=== PATIENT | male | born 1985 | race Caucasian/White ===

== ENCOUNTER 2017-11-09 20:47 | Inpatient (IN) | payer OTHER ==
[2017-11-09 22:03] LABS: Hematocrit 49 % (42-52); Hemoglobin 16.9 g/dl (14.0-18.0); Mean Corpuscular HGB Conc 34 g/dl (31-36); Mean Corpuscular Hemoglobin 29 pg (27-31); Mean Corpuscular Volume 84 fL (80-94); Mean Platelet Volume 8.6 um3 (7.4-10.4); Platelet Count 309 10^3/ul (150-450); Red Blood Count 5.82 10^6/ul (4.00-5.40); Red Cell Distribution Width 14 % (10.5-15); White Blood Count 19.3 10^3/ul (3.5-10.8)
[2017-11-09] MEDS ORDERED: Metoclopramide IV* 5 MG/ML 2 ML VIAL IV SLOW PU ONE (22:07)
[2017-11-09] MEDS ORDERED: NS 0.9% 1000 ML* 2,000 ML IV ONE (22:07)
[2017-11-09] MEDS ORDERED: Piperacillin/Tazobac ADVAN(*) 3.375 GM in NS 0.9% 100 ML* 100 ML IVPB ONE (22:07)
[2017-11-09] MEDS ORDERED: Morphine INJ* 2 MG/ML 1 ML SYRINGE (TWO MG - NEW SYRINGE VERSION) IV ONE (22:07)
--- NOTE | 2017-11-09 22:08 | ED ---
Abdominal Pain/Male - HPI Summary HPI Summary: This patient is a 31 year old M presenting to [facility] accompanied by his family with a chief complaint of RLQ that began yesterday and has gotten worse since. The patient rates the pain 10/10 in severity and describes it as sharp. Symptoms aggravated by movement. Patient reports nausea, vomiting, and decreased appetite. Patient denies fever. Pt has had exposure to sick persons. - History of Current Complaint Chief Complaint: EDAbdPain Stated Complaint: ABD PAIN Time Seen by Provider: 11/09/17 21:56 Hx Obtained From: Patient Onset/Duration: Lasting Days - 1, Still Present, Worse Since Timing: Constant Severity Initially: Moderate Severity Currently: Severe Pain Intensity: 10 Pain Scale Used: 0-10 Numeric Location: Discrete At: RLQ Character: Sharp Aggravating Factor(s): Movement Associated Signs And Symptoms: Positive: Nausea, Vomiting - Allergies/Home Medications Allergies/Adverse Reactions: Allergies Allergy/AdvReac Type Severity Reaction Status Date / Time No Known Allergies Allergy Verified 11/09/17 20:51 Home Medications: Home Medications NK [No Home Medications Reported] 11/09/17 [History Confirmed 11/09/17] PMH/Surg Hx/FS Hx/Imm Hx Endocrine/Hematology History: Denies: Hx Bone Marrow Disease, Hx Diabetes, Hx Coagulopothy Cardiovascular History: Denies: Hx Cardiomegaly, Hx Congestive Heart Failure Respiratory History: Denies: Hx Bronchopulmonary Dysplasia GI History: Reports: Hx Gastroesophageal Reflux Disease Denies: Hx Gastrointestinal Bleed Psychiatric History: Denies: Hx Panic Disorder, Hx Suicide Attempt Infectious Disease History: No Infectious Disease History: Denies: Traveled Outside the [place] in Last 30 Days - Family History Known Family History: Positive: Hypertension - Social History Lives: With Family Alcohol Use: Occasionally Hx Substance Use: No Substance Use Type: Reports: None Hx Tobacco Use: No Smoking Status (MU): Never Smoked Tobacco Review of Systems Constitutional: Other - decreased appetite Negative: Fever Positive: Abdominal Pain, Vomiting, Nausea All Other Systems Reviewed And Are Negative: Yes Physical Exam - Summary Physical Exam Summary: VITAL SIGNS: Reviewed. GENERAL: Patient is a well-developed and nourished male who is lying comfortable in the stretcher. Patient is not in any acute respiratory distress. HEAD AND FACE: No signs of trauma. No ecchymosis, hematomas or skull depressions. No sinus tenderness. EYES: PERRLA, EOMI x 2, No injected conjunctiva, no nystagmus. EARS: Hearing grossly intact. Ear canals and tympanic membranes are within normal limits. MOUTH: Oropharynx within normal limits. NECK: Supple, trachea is midline, no adenopathy, no JVD, no carotid bruit, no c- spine tenderness, neck with full ROM. CHEST: Symmetric, no tenderness at palpation LUNGS: Clear to auscultation bilaterally. No wheezing or crackles. CVS: Regular rate and rhythm, S1 and S2 present, no murmurs or gallops appreciated. ABDOMEN: Soft. No signs of distention.. Bowel sounds are normal. RLQ is TTP, there are signs of rebound EXTREMITIES: FROM in all major joints, no edema, no cyanosis or clubbing. NEURO: Alert and oriented x 3. No acute neurological deficits. Speech is normal and follows commands. SKIN: Dry and warm Triage Information Reviewed: Yes Vital Signs On Initial Exam: Initial Vitals Temp Pulse Resp BP Pulse Ox 97.5 F 121 20 145/85 96 11/09/17 20:49 11/09/17 20:49 11/09/17 20:49 11/09/17 20:49 11/09/17 20:49 Vital Signs Reviewed: Yes Diagnostics - Vital Signs Vital Signs Temp Pulse Resp BP Pulse Ox 11/09/17 20:49 97.5 F 121 20 145/85 96 - Laboratory Result Diagrams: 11/09/17 21:52 11/09/17 21:52 Lab Statement: Any lab studies that have been ordered have been reviewed, and results considered in the medical decision making process. - CT CT ABD PElvis CT Interpretation Completed By: Radiologist - . Acute appendicitis with perforation. ED physician has reviewed this radiology report. Re-Evaluation - Re-Evaluation First Eval Re-Evaluation Time: 23:09 Change: Worse Comment: Pt is still reporting pain. Abdominal Pain Fem Course/Dx - Course Assessment/Plan: This patient is a 31 year old M presenting to [facility] accompanied by his family with a chief complaint of RLQ that began yesterday and has gotten worse since. The patient rates the pain 10/10 in severity and describes it as sharp. Symptoms aggravated by movement. Patient reports nausea, vomiting, and decreased appetite. Patient denies fever. Pt has had exposure to sick persons. CT ABD Pelvis reveals, per radiologist, 1. Acute appendicitis with perforation. Bloodwork obtained. In the ED course the patient was given pain medication which alleviated the sx. Dx appendicitis. We discussed patient care with Dr. Fatima who will come see the patient and take him to surgery. Patient will be admitted to [facility] [place]. The patient is agreeable with this plan. - Diagnoses Provider Diagnoses: Acute appendicitis - Provider Notifications Discussed Care Of Patient With: William Fatima Time Discussed With Above Provider: 23:53 Instructed by Provider To: Other - He will come see the patient and take him to surgery. Discharge - Sign-Out/Discharge Documenting (check all that apply): Patient Departure - admitted - Discharge Plan Condition: Fair Disposition: ADMITTED TO [facility] Referrals: No Primary Care Phys,NOPCP [Primary Care Provider] - - Attestation Statements Document Initiated by Scribe: Yes Documenting Scribe: Barrett Oswald Provider For Whom Scribe is Documenting (Include Credential): Duane Hillman MD Scribe Attestation: IBarrett , scribed for Duane Hillman MD on 11/10/17 at 0028.
[2017-11-09 22:27] LABS: ABS Basophils 0.1 10^3/ul (0-0.2); ABS Eosinophils 0 10^3/ul (0-0.6); ABS Lymphocytes 2.1 10^3/ul (1.0-4.8); ABS Monocytes 1.8 10^3/ul (0-0.8); ABS Neutrophils 15.2 10^3/ul (1.5-7.7); ABS Nucleated RBC 0.2 10^3/ul; Eosinophil % 0 % (0-6); Nucleated Red Blood Cells % 0.8
[2017-11-09] MEDS ORDERED: Iohexol 300* (CONTRAST) 10 ML SDV IV ONE (22:57)
[2017-11-09] MEDS ORDERED: fentaNYL* 50 MCG/ML 2 ML VIAL (100 MCG VIAL) IV SLOW PU ONE ×2 (23:08→23:56)
[2017-11-09] MEDS ORDERED: fentaNYL* 50 MCG/ML 2 ML VIAL (100 MCG VIAL) ONE (23:10)
--- NOTE | 2017-11-09 23:48 | RAD ---
EXAM: CT Abdomen and Pelvis With Intravenous Contrast CLINICAL HISTORY: 31 years old, male; Pain; Abdominal pain; Localized; Right lower quadrant (rlq); Additional info: Ap; Rlq pain TECHNIQUE: Axial computed tomography images of the abdomen and pelvis with intravenous contrast. All CT scans at this facility use at least one of these dose optimization techniques: automated exposure control; mA and/or kV adjustment per patient size (includes targeted exams where dose is matched to clinical indication); or iterative reconstruction. Coronal and sagittal reformatted images were created and reviewed. CONTRAST: 150 mL of OMNIPAQUE 300 administered intravenously. COMPARISON: No relevant prior studies available. FINDINGS: Lung bases: Unremarkable. No mass. No consolidation. ABDOMEN: Liver: Unremarkable. No mass. Gallbladder and bile ducts: Unremarkable. No calcified stones. No ductal dilation. Pancreas: Unremarkable. No mass. No ductal dilation. Spleen: Unremarkable. No splenomegaly. Adrenals: Unremarkable. No mass. Kidneys and ureters: Unremarkable. No solid mass. No hydronephrosis. Stomach and bowel: Unremarkable. No obstruction. No mucosal thickening. PELVIS: Appendix: Acute appendicitis with dilatation of the appendix, large appendicolith, inflammatory changes in the adjacent mesentery, small focal fluid collection, and pneumoperitoneum. Bladder: Unremarkable. No mass. Reproductive: Unremarkable as visualized. ABDOMEN and PELVIS: Intraperitoneal space: Small amount of pneumoperitoneum is present. Small amount of free fluid is present in the pelvis. Bones/joints: No acute fracture. No dislocation. Soft tissues: Unremarkable. Vasculature: Unremarkable. No abdominal aortic aneurysm. Lymph nodes: Unremarkable. No enlarged lymph nodes. IMPRESSION: 1. Acute appendicitis with perforation.
--- NOTE | 2017-11-10 00:51 | HP ---
H&P (Free Text) History and Physical: CC: abdominal pain HPI: 31 yo M with 36 hr h/o stomach ache progressing to RLQ abdominal pain associated with N/V/anorexia, subjective fever. He initially thought it was a stomach bug as his child has been ill. He slept poorly last night and tried Pepto Bismol today with no relief. He fell asleep at 5 pm but then awoke with sudden worsening of his pain and he came [place] [facility]. He was found to have WBCs=19k and CT scan abd/pelvis shows acute appendicitis with a dilated appendix, large appendicolith, free fluid and pneumoperitoneum. Based on these findings, surgical evaluation was requested. PMH: denies PSH: denies Meds: denies NKDA SH: no tobacco use; EtOH=1 beer/day; denies drug use. FH: F age 56 with RA; M a&w 55; sister 35 with Levar's dz. ROS: No stroke/seizures. No CP/SOB. No cough/wheeze. No easy bruising/ bleeding/blood clots. No thyroid dz/DM. No mm/joint pain. PE: Vital Signs Temp 97.5 F 11/09/17 20:49 Pulse 93 11/10/17 00:16 Resp 18 11/09/17 23:58 BP 151/67 11/10/17 00:16 Pulse Ox 92 11/10/17 00:16 Gen: WD,WN, M in mod distress lying in stretcher. HEENT: NCAT, EOMI, sclera anicteric. Neck: supple, no JOVON Lungs: CTA B, no W/R/R Heart: reg s1s2 no M/R/G Abd: no scars; no BS; diffusely tender to percussion with guarding in RLQ. Ext: warm, no C/C/E Intake & Output 11/09/17 11/09/17 11/10/17 06:59 18:59 06:59 Weight 260 lb Laboratory Results - last 24 hr 11/09/17 11/09/17 11/09/17 21:52 21:52 21:52 WBC 19.3 H RBC 5.82 H Hgb 16.9 Hct 49 MCV 84 MCH 29 MCHC 34 RDW 14 Plt Count 309 MPV 8.6 Neut % (Auto) 79.1 Lymph % (Auto) 11.0 L Victoria % (Auto) 9.6 H Eos % (Auto) 0 Baso % (Auto) 0.3 Absolute Neuts (auto) 15.2 H Absolute Lymphs (auto) 2.1 Absolute Monos (auto) 1.8 H Absolute Eos (auto) 0 Absolute Basos (auto) 0.1 Absolute Nucleated RBC 0.2 Nucleated RBC % 0.8 Sodium 136 Potassium 4.0 Chloride 97 L Carbon Dioxide 27 Anion Gap 12 H BUN 8 Creatinine 1.31 H Est GFR ( Amer) 76.2 Est GFR (Non-Af Amer) 63.0 BUN/Creatinine Ratio 6.1 L Glucose 173 H Lactic Acid 2.3 H* Calcium 10.0 Total Bilirubin 0.90 AST 17 ALT 32 Alkaline Phosphatase 64 C-Reactive Protein 81.63 H Total Protein 8.6 Albumin 5.0 Globulin 3.6 Albumin/Globulin Ratio 1.4 Lipase < 10 L Radiology: CT abd/pel with contrast; images reviewed; findings as above. Impression: 31 yo M with perforated appendicitis. Plan/Recommendation: Findings discussed with patient. Recommendation is for laparoscopic appendectomy. I discussed with him that the findings at the time of surgery will dictate the procedure with the possibility of extension of procedure to include laparotomy. The nature of the procedure, indications, risks, benefits, alternatives, and option of no treatment were discussed. Risks were explained including, not limited to: bleeding, infection, pain, scarring, blood clots, pneumonia, N/V, and risks of GETA. All questions were answered. He stated understanding and agrees to proceed.
[2017-11-10] MEDS ORDERED: HYDROmorphone INJ1* 1 MG/ML SYRINGE IV SLOW PU PRN (01:00)
[2017-11-10] MEDS ORDERED: Zosyn per Pharmacy* NOTE FOLLOW UP SCH (01:00)
[2017-11-10] MEDS ORDERED: diPHENhydraMINE IV* 50 MG/ML 1 ml VIAL (BENADRYL) IV PRN (01:01)
[2017-11-10] MEDS ORDERED: Ketorolac INJ* 30 MG/ML 1 ML VIAL IV PRN (01:02)
[2017-11-10] MEDS ORDERED: Succinylcholine* 20 MG/ML 10 ML VIAL ONE (01:11)
[2017-11-10] MEDS ORDERED: Propofol* 10 MG/ML 20 ML BTL IV PUSH ONE ×2 (01:11→02:50)
[2017-11-10] MEDS ORDERED: Lidocaine 2% PF * 5 ML VIAL ONE (01:11)
[2017-11-10] MEDS ORDERED: Cisatracurium* 2 MG/ML MDV 5 ML ONE (01:11)
[2017-11-10] MEDS ORDERED: Ondansetron INJ* 2 MG/ML VIAL ONE (01:11)
[2017-11-10] MEDS ORDERED: Dexamethasone IV* 4 MG/ML 1 ML (4 MG) ONE (01:11)
[2017-11-10] MEDS ORDERED: Midazolam* 1 MG/ML 5 ML VIAL (5 MG) ONE (01:11)
[2017-11-10] MEDS ORDERED: fentaNYL* 50 MCG/ML 2 ML VIAL (100 MCG VIAL) ONE ×2 (01:11→02:50)
[2017-11-10] MEDS ORDERED: Bupivacaine 0.25% W/EPI* 10 ML SDV ONE ×2 (01:26→03:42)
[2017-11-10] MEDS ORDERED: Bupivacaine 0.25% SDV PF* 10 ML VIAL INJ ONE (01:47)
[2017-11-10] MEDS ORDERED: Famotidine IV* 10 MG/ML 2 ML (20 mg) ONE (02:07)
[2017-11-10] MEDS ORDERED: fentaNYL* 50 MCG/ML 2 ML VIAL (100 MCG VIAL) IV PRN (02:32)
[2017-11-10] MEDS ORDERED: Naloxone* 0.4 MG/ML 1 ML VIAL IV PRN (02:32)
[2017-11-10] MEDS ORDERED: Ondansetron INJ* 2 MG/ML VIAL IV PRN (02:32)
[2017-11-10] MEDS ORDERED: Glycopyrrolate IV* 0.2 MG/ML 1 ML VIAL ONE (03:00)
[2017-11-10] MEDS ORDERED: Neostigmine Methylsulfate* 1 MG/ML 10 ML VIAL (1 mg/ml) ONE (03:00)
[2017-11-10] MEDS: Piperacillin/Tazobac ADVAN(*) 3.375 GM in NS 0.9% 100 ML* 100 ML IVPB SCH ×4 (04:50→23:07)
--- NOTE | 2017-11-10 10:33 | BRIEFOPN ---
Brief Operative Note - Surgery Procedures: PREOP DX: ACUTE APPENDICITIS WITH PERFORATION POSTOP DX: SAME AND FECAL PERITONITIS PROC: LAPAROSCOPIC APPENDECTOMY; PERITONEAL LAVAGE; DRAIN PLACEMENT SURG: MECENAS ASSIST: NONE ANES: GET/TOAL EBL: <50ML IVF: 2.5 L LR SPEC: APPENDIX DRAIN: 7MM SHAUN COMPL: NONE CONDITION: STABLE TO RR
[2017-11-10] MEDS: D5W 1/2 NS KCl 20 Meq 1000 ML* 1,000 ML IV SCH ×2 (10:45→17:10)
[2017-11-10] MEDS ORDERED: Acetaminophen TAB* 325 MG ONE (12:45)
[2017-11-10] MEDS: Acetaminophen TAB* 325 MG PO PRN ×3 (12:46→23:21)
--- NOTE | 2017-11-10 18:15 | PN ---
Progress Note - Progress Note Date of Service: 11/10/17 Note: Surgery Progress: S: POD #1/2. Patient seen earlier this a.m. and now. Doing well. Not much pain. Burping. No flatus. Had fever earlier. O: Vital Signs - 8 hr 11/10/17 11/10/17 11/10/17 10:40 10:42 12:26 Temperature 100.1 F 100.1 F 100.3 F Pulse Rate 97 97 92 Respiratory 16 22 Rate Blood Pressure 157/74 157/74 132/50 (mmHg) O2 Sat by Pulse 94 94 94 Oximetry 11/10/17 11/10/17 11/10/17 12:31 13:43 15:34 Temperature 99.8 F 97.9 F Pulse Rate 94 100 100 Respiratory 16 Rate Blood Pressure 149/71 (mmHg) O2 Sat by Pulse 94 97 Oximetry Intake and Output Last 24 Hours 11/08/17 11/09/17 11/10/17 11/11/17 06:59 06:59 06:59 06:59 Intake Total 2710 1079 Output Total 310 2095 Balance 2400 -1016 Weight 260 lb Intake: IV Fluids 2710 629 ABX - ZOSYN 110 LR 2600 629 Oral 450 Output: SHAUN #1 110 120 Urine 150 1325 Lopez 650 Estimated Blood Loss 50 Gen: NAD; appears comfortable Heart: reg Lungs: clear Abd: quiet; softly distended; SHAUN: serosang w/ some particulate material; soft, no sig tenderness A: s/p laparoscopic appendectomy; ruptured w/ stool peritonitis P: clears ad sue; d/c Lopez; cont Zosyn; discussed with Dr. Fatima earlier
--- NOTE | 2017-11-10 18:29 | OP ---
DATE OF SURGERY: 11/10/17 - ROOM #346 DATE OF : 81 SURGEON: William Fatima MD RESEARCH METHODS INSTRUCTOR: None. ANESTHESIA: General endotracheal. ANESTHESIOLOGIST: Dio Galeano MD PRE-OP DIAGNOSIS: Perforated appendicitis. POST-OP DIAGNOSIS: Perforated appendicitis with fecal peritonitis. OPERATIVE PROCEDURE: Laparoscopic appendectomy, peritoneal lavage, drain placement. ESTIMATED BLOOD LOSS: Less than 50 mL. IV FLUIDS: 2500 mL crystalloid. SPECIMEN: Appendix. DRAINS: A 7-mm Lennox-Jaime. COMPLICATIONS: None. COUNTS: Instrument, needle, sponge counts were correct. DESCRIPTION OF PROCEDURE: The patient was brought to the operating room and placed on the table supine. Sequential compression devices were placed on both lower extremities. General anesthesia was administered. Lopez catheter was placed. He was clipped, prepped and draped in the usual sterile fashion. He received appropriate intravenous antibiotics. Time-out was performed. Local anesthetic was infiltrated periumbilically. A vertical transumbilical incision was created and open technique was used to access the peritoneal cavity after which a 12-mm trocar was placed. Carbon dioxide was insufflated to a pressure of 15 mmHg. Under direct visualization, a 5-mm trocar was placed in the suprapubic midline and also in the left lower quadrant. Inspection of the peritoneum revealed extensive peritonitis of the lower abdomen with brown purulent fluid in the abdomen with fibrinous exudate throughout the abdomen including above the liver. The terminal ileum and cecum were identified and there was noted to be a very dilated appendix with perforation at its mid portion with feculent material emanating from the appendix. The appendix was mobilized bluntly to elevate the mesentery of the appendix and created a window through this. The appendix was then divided from the cecum with the Endo ANDRES stapler with a dhaliwal cartridge using 2 firings. Then, the appendix mesentery was divided with EndoGIA stapler with a dhaliwal cartridge, size 16 mm. Once the appendix was freed, it was place into an retrieval bag and retrieved through the umbilical site. A copious peritoneal lavage was performed with 6 L of warm saline irrigating all 4 quadrants and in particular paying attention to the area above the liver as well as the pelvis. After assuring hemostasis and inspection of the staple lines noted to be intact, a 7-mm Lennox-Jaime drain was placed into the peritoneal cavity withdrawn to the suprapubic site and the drain was placed into the pelvis and along the right paracolic gutter. The drain was sutured to the skin with 3-0 Prolene. The remaining ports removed under direct visualization. Carbon dioxide was released. The umbilical wound was closed with 0 Vicryl in [id number] fashion to approximate the fascia. This was copiously irrigated. The wound was partially closed with joyce and packed with 4x4 gauze. The left lower quadrant skin incision was closed with staple and dressing supplied to all the sites. The patient was extubated uneventfully. He was transferred to the recovery room in a stable condition. [id number]/[facility] #: [id number] NURIA
[2017-11-11] MEDS: D5W 1/2 NS KCl 20 Meq 1000 ML* 1,000 ML IV SCH ×3 (01:44→21:15)
[2017-11-11] MEDS: Piperacillin/Tazobac ADVAN(*) 3.375 GM in NS 0.9% 100 ML* 100 ML IVPB SCH ×2 (05:01→10:34)
[2017-11-11] MEDS: Acetaminophen TAB* 325 MG PO PRN ×2 (05:41→14:13)
[2017-11-11 05:52] LABS: ABS Basophils 0 10^3/ul (0-0.2); ABS Eosinophils 0 10^3/ul (0-0.6); ABS Lymphocytes 1.5 10^3/ul (1.0-4.8); ABS Monocytes 0.9 10^3/ul (0-0.8); ABS Neutrophils 10.9 10^3/ul (1.5-7.7); ABS Nucleated RBC 0 10^3/ul; Eosinophil % 0.4 % (0-6); Hematocrit 43 % (42-52); Hemoglobin 14.7 g/dl (14.0-18.0); Lymphocyte % 11.1 % (25-47); Mean Corpuscular HGB Conc 34 g/dl (31-36); Mean Corpuscular Hemoglobin 29 pg (27-31); Mean Corpuscular Volume 86 fL (80-94); Mean Platelet Volume 8.3 um3 (7.4-10.4); Nucleated Red Blood Cells % 0.1; Platelet Count 203 10^3/ul (150-450); Red Blood Count 5.01 10^6/ul (4.00-5.40); Red Cell Distribution Width 14 % (10.5-15); White Blood Count 13.3 10^3/ul (3.5-10.8)
[2017-11-11 06:08] LABS: EGFR Non-African American 58.8 (>60)
--- NOTE | 2017-11-11 11:19 | PN ---
Progress Note - Progress Note Date of Service: 11/11/17 Note: S: Patient is POD #2 s/p lap appy with perforated appendix. Pt is OOB and walking, tolerating liquids well, and would like to advance diet. He denies nausea and vomiting, has not yet had a bowel movement, but is passing flatus. He has diffuse pressure throughout abdomen he attributes to distension with moderate SOB on walking due to the pressure, some relief with pain medication. O: Temp Pulse Resp BP Pulse Ox 98.8 F 112 18 147/60 91 11/11/17 08:24 11/11/17 08:24 11/11/17 08:24 11/11/17 08:24 11/11/17 08:24 Intake & Output 11/09/17 11/10/17 11/11/17 11/12/17 06:59 06:59 06:59 06:59 Intake Total 2710 3349 925 Output Total 310 3335 10 Balance 2400 14 915 Weight 260 lb Intake: IV Fluids 2710 1859 815 ABX - ZOSYN 110 240 D5W 1/2 NS 20 meq KCL 990 815 LR 2600 629 IVPB 110 ABX - ZOSYN 110 Oral 1490 Output: SHAUN #1 110 135 10 Urine 150 2550 0 Lopez 650 Estimated Blood Loss 50 VSS stable. Max T 101 F, resolved. Gen: Pt is OOB and walking the hallway. He is in NAD. HEENT: Dry oral mucous membranes. Heart: Tachycardia, regular rhythm. No MRG. Lungs: CTA b/l to anterior upper lobes and posterior bases. Abd: SHAUN drain in place, collecting 50 cc cloudy dark serosanguinous fluid. Dressings removed. Incisions are healing well, joyce are intact. No signs of infection. SHAUN Drain is in place with mild drainage from incision, replaced dressing. Present hypoactive BS. Mild tenderness to lower quadrants b/l. Ext: No edema or discoloration. WBC 11/09/17 11/11/17 21:52 05:35 WBC 19.3 10^3/ul H 10^3/ul 13.3 10^3/ul H 10^3/ul (3.5-10.8) (3.5-10.8) WBC trending downward. A: POD #2 s/p lap appy with perforated appendix, improving. P: Advance diet as tolerated. Continue IS use. Increase activity. Continue IV abx and IV fluids.
[2017-11-11] MEDS: ZOSYN 3.375 GM Q8H per EXTENDED INFUSION IVPB SCH ×4 (14:47→22:30)
--- NOTE | 2017-11-11 16:05 | PN ---
Progress Note - Progress Note Date of Service: 11/11/17 Note: Patient seen with PA studentJewel. Agree with assessment and plan.
[2017-11-11] MEDS: Ondansetron INJ* 2 MG/ML VIAL IV PRN (23:19)
[2017-11-12 05:45] LABS: EGFR Non-African American 61.9 (>60)
[2017-11-12] MEDS: ZOSYN 3.375 GM Q8H per EXTENDED INFUSION IVPB SCH ×6 (06:31→23:13)
[2017-11-12] MEDS: D5W 1/2 NS KCl 20 Meq 1000 ML* 1,000 ML IV SCH ×2 (07:45→14:51)
--- NOTE | 2017-11-12 08:57 | PN ---
<Tera Holloway - Last Filed: 11/12/17 09:03> Progress Note - Progress Note Date of Service: 11/12/17 Note: S: Pt is POD #2 s/p lap appy with perforated appendix. The abdominal bloating and pressure are improving but remain. Pain controlled and tolerable with acetaminophen. He notes reflux sx with vomiting small amount of bile last night when laying down for bed. He continues to have reflux sx and is requesting medication for control. He has been passing flatus, stool, and urine without difficulty. He continues to be OOB and walking. He notes improvement with IS use. He denies CP, SOB, and nausea. O: Temp Pulse Resp BP Pulse Ox 97.9 F 101 16 155/94 92 11/12/17 03:58 11/12/17 03:58 11/12/17 03:58 11/12/17 03:58 11/12/17 03:58 T max is 101.2 F. Intake & Output 11/10/17 11/11/17 11/12/17 11/13/17 06:59 06:59 06:59 06:59 Intake Total 2710 3349 2925 Output Total 310 3335 1175 63 Balance 2400 14 1750 -63 Weight 260 lb Intake: IV Fluids 2710 1859 1805 ABX - ZOSYN 110 240 D5W 1/2 NS 20 meq KCL 990 1805 LR 2600 629 IVPB 230 ABX - ZOSYN 230 Oral 1490 890 Output: SHAUN #1 110 135 505 38 Urine 150 2550 670 25 Lopez 650 Estimated Blood Loss 50 Other: Estimated Void Medium Date of Last Bowel 11/12/2017 Movement # Bowel Movements 1 Estimated Stool Amount Small # Voids 1 Gen: Pt is sitting upright in chair and in NAD. HEENT: Moist mucus membranes. Heart: Mild tachycardia. Regular rhythm. No MRG. Lungs: CTA b/l to upper anterior roberts and lower posterior roberts. Abd: Umbilical and LLQ incisions healing well, joyce intact. No signs of infection. Midline suprapubic incision continues to have slight drainage from around SHAUN tube, otherwise dressing is dry and intact. SHAUN Drain collected 25 cc cloudy yellow drainage. BS normoactive 4Q. No tenderness to palpation. Ext: No edema or discoloration. A: POD #2 s/p lap appy with perforated appendix, improving. P: Antacid for reflux sx. Continue IV abx. Continue IS use. Continue activity. Consider transition from clear liquid diet to full liquids. Will have Dr. Fatima and/or CECE Wilkerson F/U with pt to confirm my assessment. <William Fatima - Last Filed: 11/12/17 13:19> Progress Note - Progress Note Note: Pt seen independently by me. Agree with findings as above. In my assessment, I suspect he still has resolving ileus secondary to his peritonitis, even though some bowel function as he has abdominal distension and emesis. I advised him to limit po intake until feeling less distended. Will continue to monitor Cr and continue IVF. Given the severity of the peritonits and as he has low grade fevers, will continue IV Zosyn until afebrile. Can change to po Augmentin at discharge. I discussed that he is at increased risk of abscess and may require additional imaging and procedures if warranted by his course.
[2017-11-12] MEDS ORDERED: Al Hydrox/Mg Hydrox/Simet LIQ* 30 ML UDC PO PRN (10:07)
[2017-11-12] MEDS: Pantoprazole IV* 40 MG IV SCH (10:40)
[2017-11-13] MEDS: D5W 1/2 NS KCl 20 Meq 1000 ML* 1,000 ML IV SCH ×2 (00:53→10:46)
[2017-11-13 06:17] LABS: EGFR Non-African American 71.1 (>60)
[2017-11-13] MEDS: ZOSYN 3.375 GM Q8H per EXTENDED INFUSION IVPB SCH ×6 (06:32→23:06)
[2017-11-13] MEDS ORDERED: oxyCODONE/Acetamin 5/325 MG* TAB PO PRN (09:48)
--- NOTE | 2017-11-13 09:48 | PN ---
Progress Note - Progress Note Date of Service: 11/13/17 SOAP: Subjective: Feels better today-slept a little more Having some loose BM's-feels a little distended and burping Pain controlled Objective: Afeb X 24 hours Temp Pulse Resp BP Pulse Ox 98.4 F 85 18 134/54 94 11/13/17 08:17 11/13/17 08:17 11/13/17 08:17 11/13/17 08:17 11/13/17 08:17 Intake & Output 11/11/17 11/12/17 11/13/17 11/14/17 06:59 06:59 06:59 06:59 Intake Total 3349 2925 5316 Output Total 3335 1175 1785 Balance 14 1750 3531 Intake: IV Fluids 1859 1805 3225 ABX - ZOSYN 240 D5W 1/2 NS 20 meq KCL 990 1805 3225 LR 629 IVPB 230 371 ABX - ZOSYN 230 371 Oral 3109 995 8230 Output: SHAUN #1 135 505 85 Urine 2550 670 1700 Lopez 650 Other: Estimated Void Medium Date of Last Bowel 11/12/2017 11/12/17 Movement # Bowel Movements 1 1 Estimated Stool Amount Small Small Other Amount Description Emesis unmeasurable # Voids 1 PEX: Comfortable Lungs are clear Abd is soft and distended. Incisions are CDI. Bowel sounds are decreased, quiet. Drain in place-thin serous fluid Ext with some mild edema Laboratory Results - last 24 hr 11/13/17 05:41 Sodium 134 L Potassium 3.8 Chloride 100 L Carbon Dioxide 29 Anion Gap 5 BUN 10 Creatinine 1.18 H Est GFR ( Amer) 86.0 Est GFR (Non-Af Amer) 71.1 BUN/Creatinine Ratio 8.5 Glucose 118 H Calcium 8.3 L Assessment: POD# 4 s/p lap appy for perforated appendicitis Ileus Plan: Continue IV abx SHAUN drain Po as tolerated Increase activity Not ready for discharge.
[2017-11-13] MEDS: Pantoprazole IV* 40 MG IV SCH (10:46)
[2017-11-14 06:03] LABS: ABS Basophils 0.1 10^3/ul (0-0.2); ABS Eosinophils 0.2 10^3/ul (0-0.6); ABS Lymphocytes 1.2 10^3/ul (1.0-4.8); ABS Monocytes 1.3 10^3/ul (0-0.8); ABS Neutrophils 7.2 10^3/ul (1.5-7.7); ABS Nucleated RBC 0 10^3/ul; Eosinophil % 2.3 % (0-6); Hematocrit 37 % (42-52); Hemoglobin 12.7 g/dl (14.0-18.0); Lymphocyte % 11.8 % (25-47); Mean Corpuscular HGB Conc 34 g/dl (31-36); Mean Corpuscular Hemoglobin 29 pg (27-31); Mean Corpuscular Volume 85 fL (80-94); Mean Platelet Volume 8.2 um3 (7.4-10.4); Nucleated Red Blood Cells % 0; Platelet Count 240 10^3/ul (150-450); Red Blood Count 4.38 10^6/ul (4.00-5.40); Red Cell Distribution Width 14 % (10.5-15)
[2017-11-14] MEDS: ZOSYN 3.375 GM Q8H per EXTENDED INFUSION IVPB SCH ×6 (07:37→23:02)
[2017-11-14] MEDS: D5W 1/2 NS KCl 20 Meq 1000 ML* 1,000 ML IV SCH (07:37)
--- NOTE | 2017-11-14 09:10 | PN ---
Progress Note - Progress Note Date of Service: 11/14/17 Note: Surgery Mr. Cardoza says he feels pretty good. He has some gas pain in the abd. He is tolerating a diet. He is having loose BMs, and passing flatus with BMs. Vital Signs 11/13/17 11/13/17 11/13/17 11:51 15:27 20:06 Temperature 99.3 F 98.7 F 100.3 F Pulse Rate 85 89 95 Respiratory 16 20 16 Rate Blood Pressure 156/58 151/61 155/57 (mmHg) O2 Sat by Pulse 98 96 95 Oximetry 11/13/17 11/13/17 11/13/17 20:20 21:36 23:14 Temperature 98.7 F 99.0 F Pulse Rate 95 85 Respiratory 18 18 Rate Blood Pressure 149/62 (mmHg) O2 Sat by Pulse 94 94 Oximetry 11/14/17 11/14/17 11/14/17 03:09 03:18 07:33 Temperature 98.5 F Pulse Rate 95 Respiratory 16 16 Rate Blood Pressure 147/70 (mmHg) O2 Sat by Pulse 95 Oximetry Abd: decreased BS, soft, non-tender Incision: clean and dry SHAUN: yellow, cloudy fluid. 245 cc recorded last 24 hours. Intake & Output 11/13/17 11/14/17 11/14/17 22:59 06:59 14:59 Intake Total 600 535 617 Output Total 650 1025 550 Balance -50 -490 67 Laboratory Results - last 24 hr 11/14/17 05:37 WBC 10.0 RBC 4.38 Hgb 12.7 L Hct 37 L MCV 85 MCH 29 MCHC 34 RDW 14 Plt Count 240 MPV 8.2 Neut % (Auto) 71.9 Lymph % (Auto) 11.8 L [place] % (Auto) 13.3 H Eos % (Auto) 2.3 Baso % (Auto) 0.7 Absolute Neuts (auto) 7.2 Absolute Lymphs (auto) 1.2 Absolute Monos (auto) 1.3 H Absolute Eos (auto) 0.2 Absolute Basos (auto) 0.1 Absolute Nucleated RBC 0 Nucleated RBC % 0 A/P: POD#4.5 s/p appendectomy for perforated appendicitis. Making progress, leukocytosis resolved. Still had low grade fever yesterday, will continue IVAbx for now. CLFoster
[2017-11-14] MEDS: Pantoprazole IV* 40 MG IV SCH (11:35)
[2017-11-14] MEDS: Acetaminophen TAB* 325 MG PO PRN (23:08)
[2017-11-15] MEDS: D5W 1/2 NS KCl 20 Meq 1000 ML* 1,000 ML IV SCH ×2 (00:17→17:36)
[2017-11-15 00:51] LABS: Urine Appearance Clear; Urine Blood 2+ (Negative); Urine Color Yellow; Urine Ketones Negative (Negative); Urine Protein 1+(30 mg/dL) (Negative); Urine Red Blood Cell 2+(6-10/hpf) (Absent); Urine Specific Gravity 1.009 (1.010-1.030); Urine Urobilinogen Negative (Negative); Urine White Blood Cell Trace(0-5/hpf) (Absent)
[2017-11-15 05:41] LABS: ABS Basophils 0 10^3/ul (0-0.2); ABS Eosinophils 0.2 10^3/ul (0-0.6); ABS Lymphocytes 0.7 10^3/ul (1.0-4.8); ABS Monocytes 1.2 10^3/ul (0-0.8); ABS Neutrophils 7.3 10^3/ul (1.5-7.7); ABS Nucleated RBC 0 10^3/ul; Eosinophil % 1.8 % (0-6); Hematocrit 37 % (42-52); Hemoglobin 12.7 g/dl (14.0-18.0); Lymphocyte % 7.6 % (25-47); Mean Corpuscular HGB Conc 34 g/dl (31-36); Mean Corpuscular Hemoglobin 29 pg (27-31); Mean Corpuscular Volume 84 fL (80-94); Mean Platelet Volume 7.7 um3 (7.4-10.4); Nucleated Red Blood Cells % 0.1; Platelet Count 253 10^3/ul (150-450); Red Blood Count 4.39 10^6/ul (4.00-5.40); Red Cell Distribution Width 14 % (10.5-15); White Blood Count 9.4 10^3/ul (3.5-10.8)
[2017-11-15] MEDS: ZOSYN 3.375 GM Q8H per EXTENDED INFUSION IVPB SCH ×6 (06:13→22:53)
[2017-11-15] MEDS: Acetaminophen TAB* 325 MG PO PRN ×2 (07:32→20:01)
--- NOTE | 2017-11-15 08:39 | PN ---
Progress Note - Progress Note Date of Service: 11/15/17 SOAP: Subjective: Overall states he feels better but having high fever to 102. No need for pain meds. Eating with appetite. Having BM and flatus. Objective: Vital Signs Temp 99.6 F 11/15/17 05:58 Pulse 85 11/15/17 03:53 Resp 16 11/15/17 03:53 BP 153/57 11/15/17 03:53 Pulse Ox 95 11/15/17 03:53 Gen: appears flushed; NAD abd: obese, incisions c/d/i no erythema; soft and NT; SHAUN serous. Intake & Output 11/14/17 11/15/17 11/15/17 18:59 06:59 18:59 Intake Total 617 3880 Output Total 1335 2268 Balance -718 1612 Intake: IV Fluids 505 1380 ABX - ZOSYN 215 D5W 1/2 NS 20 meq KCL 505 950 LR 215 IVPB 112 ABX - ZOSYN 112 Oral 2500 Output: SHAUN #1 85 18 Urine 1250 2250 Other: Estimated Void Medium Date of Last Bowel 11/14/17 11/14/2017 Movement # Bowel Movements 1 1 Estimated Stool Amount Small Large # Voids 1 Laboratory Results - last 24 hr 11/15/17 11/15/17 00:17 05:13 WBC 9.4 RBC 4.39 Hgb 12.7 L Hct 37 L MCV 84 MCH 29 MCHC 34 RDW 14 Plt Count 253 MPV 7.7 Neut % (Auto) 77.1 Lymph % (Auto) 7.6 L [place] % (Auto) 13.2 H Eos % (Auto) 1.8 Baso % (Auto) 0.3 Absolute Neuts (auto) 7.3 Absolute Lymphs (auto) 0.7 L Absolute Monos (auto) 1.2 H Absolute Eos (auto) 0.2 Absolute Basos (auto) 0 Absolute Nucleated RBC 0 Nucleated RBC % 0.1 Urine Color Yellow Urine Appearance Clear Urine pH 5.0 Ur Specific [place] 1.009 L Urine Protein 1+(30 mg/dl) A Urine Ketones Negative Urine Blood 2+ A Urine Nitrate Negative Urine Bilirubin Negative Urine Urobilinogen Negative Ur Leukocyte Esterase Negative Urine WBC (Auto) Trace(0-5/hpf) Urine RBC (Auto) 2+(6-10/hpf) A Urine Bacteria Absent Urine Glucose Negative Assessment: s/p lap appy for perf. Now febrile despite IV Zosyn. Plan: CT abd/pel to evaluate for abscess. Cont IV Zosyn and SHAUN.
[2017-11-15] MEDS: Pantoprazole IV* 40 MG IV SCH (11:23)
[2017-11-15] MEDS ORDERED: Iohexol 300* (CONTRAST) 10 ML SDV IV ONE (12:03)
--- NOTE | 2017-11-15 13:12 | RAD ---
CLINICAL HISTORY: evaluate for abscess; s/p appendectomy and drain COMPARISON: November 09, 2017 TECHNIQUE: Multiple contiguous axial CT scans were obtained of the abdomen and pelvis after the administration of intravenous contrast. Coronal and sagittal multiplanar reformations are submitted for review. Oral contrast was administered. Delayed images were obtained through the abdomen. FINDINGS: LUNG BASES: There is linear atelectasis of the right lower lobe. There is a small right pleural effusion. LIVER: The liver is normal in shape, size, contour, and attenuation. BILE DUCTS: There is no intrahepatic or extrahepatic biliary dilatation. GALLBLADDER: The gallbladder is normal, without pericholecystic inflammatory change. PANCREAS: The pancreas is normal, without mass or ductal dilatation. SPLEEN: Normal in size and appearance. UPPER GI TRACT: Evaluation of the gastrointestinal tract is limited by incomplete gastric distention. The upper GI tract is unremarkable. SMALL BOWEL AND MESENTERY: There is diffuse distention and dilatation of the small bowel with transition to decompressed small bowel within the right upper quadrant.. COLON: The large bowel is decompressed. There is a small loculated fluid collection along the right paracolic gutter measuring 4.4 x 1.3 x 2.4 cm.. A surgical drain is noted within the right lower quadrant without residual collection around the drain. The surgical drain does not communicate with the loculated fluid collection. ADRENALS: Normal bilaterally. KIDNEYS: The kidneys are normal in shape, size, contour, and axis. There is no hydronephrosis or nephrolithiasis. BLADDER: The bladder is smooth in contour. PELVIC ORGANS: The prostate gland is normal. The seminal vesicles are symmetric. AORTA: The aorta is normal. IVC: Unremarkable LYMPH NODES: There is no lymphadenopathy by size criteria. ABDOMINAL WALL: There is no evidence for abdominal wall hernia. BONES AND SOFT TISSUES: There are mild diffuse degenerative changes. OTHER: None IMPRESSION: 1. SMALL BOWEL OBSTRUCTION. 2. THERE IS A 4.4 X 1.3 X 2.4 CM FLUID COLLECTION ALONG THE RIGHT PARACOLIC GUTTER THAT MAY REPRESENT RESIDUAL ABSCESS GIVEN THE CLINICAL HISTORY. 3. SMALL RIGHT PLEURAL EFFUSION.
[2017-11-15] MEDS: Ondansetron INJ* 2 MG/ML VIAL IV PRN (14:56)
[2017-11-16] MEDS: D5W 1/2 NS KCl 20 Meq 1000 ML* 1,000 ML IV SCH ×3 (02:01→21:07)
[2017-11-16] MEDS: ZOSYN 3.375 GM Q8H per EXTENDED INFUSION IVPB SCH ×2 (06:12)
[2017-11-16 06:56] LABS: EGFR Non-African American 78.7 (>60)
--- NOTE | 2017-11-16 10:15 | PN ---
Progress Note - Progress Note Date of Service: 11/16/17 SOAP: Subjective: Episodes of N/V, bilious, yesterday. Reports large BM since, loose, +flatus. Pain and distension seem better. Discussed CT findings. Objective: Bvvl=197 Vital Signs Temp 98.1 F 11/16/17 07:27 Pulse 86 11/16/17 07:27 Resp 18 11/16/17 07:27 BP 131/55 11/16/17 07:27 Pulse Ox 95 11/16/17 07:27 Gen: NAD; non toxic appearing. Abd: obese, softly distended, NT. Incisions c/d/i no erythema; SHAUN serous. Intake & Output 11/15/17 11/16/17 11/16/17 18:59 06:59 18:59 Intake Total 0 220 Output Total 701 578 Balance -701 -358 Weight 260 lb Intake: IV Fluids 220 ABX - ZOSYN 220 Oral 0 0 Output: SHAUN #1 1 3 Urine 700 575 Other: Estimated Void Medium Date of Last Bowel 11/16/17 Movement # Bowel Movements 1 2 Estimated Stool Amount Medium Medium # Voids 2 Laboratory Results - last 24 hr 11/16/17 05:12 Sodium 135 Potassium 3.8 Chloride 100 L Carbon Dioxide 26 Anion Gap 9 BUN 6 Creatinine 1.08 Est GFR ( Amer) 95.3 Est GFR (Non-Af Amer) 78.7 BUN/Creatinine Ratio 5.6 L Glucose 125 H Calcium 8.[address] scan findings/images reviewed. SBO and 4.4 x 1.3 x 2.4 cm collection R paracolic gutter. Assessment: POD#6 s/p lap appy for perf with fecal peritonitis. Now with early postop SBO ( partial vs. resolving) and ongoing fever with small collection in R paracolic gutter. Plan: Discussed with patient. Will limit po intake. Will ask for ID consult. Will d /w radiology if drainage feasible. Cont IVF and abx. May need TPN if SBO not resolved soon. Will check AXR.
--- NOTE | 2017-11-16 11:26 | RAD ---
Indication: Follow-up small bowel obstruction Flat and upright views of the abdomen demonstrates no free air. Dilated loops of bowel with air-fluid levels are noted centrally and predominantly in the left upper quadrant. Possibility of gas is noted in the right colon. Findings are consistent with small bowel obstruction. IMPRESSION: Dilated loops of bowel centrally and in the left upper quadrant consistent with small bowel obstruction. Paucity of gas is noted in the right colon.
[2017-11-16] MEDS: Pantoprazole IV* 40 MG IV SCH (11:35)
[2017-11-16] MEDS ORDERED: metroNIDAZOLE IV 500 MG/100ML* 100 ML IVPB SCH (14:00)
[2017-11-16] MEDS: Levofloxacin 500 MG IVPREMIX(* 500 MG/100 ML BAG IVPB SCH (14:51)
--- NOTE | 2017-11-16 21:24 | CONS ---
CONSULTATION REPORT: DATE OF CONSULT: 11/16/17 REQUESTING PHYSICIAN: Dr. Fatima. CONSULTING SERVICE: Infectious Disease. REASON FOR CONSULT: Fever. IMPRESSION: 1. Fever after laparoscopic repair of a perforated appendicitis with fecal peritonitis and now with a small right-sided abdominal collection of 4.4 x 1.3 x 2.4 cm. Differential diagnosis for his ongoing fever includes development of small intraabdominal abscess versus a drug fever due to Zosyn, which is a frequent cause of it. He does not have other allergic symptoms including rash or pruritus, but that does not rule it out. 2. Partial resolving small bowel obstruction with intermittent loose stools. 3. Obesity. RECOMMENDATIONS: In the event this is a drug fever, we will stop his Zosyn and start Levaquin 500 mg IV daily, Flagyl 500 mg IV every 12 hours to continue covering his recent peritonitis and probable small right intraabdominal abscess. If this is a drug fever, I expect he will continue to have fevers for another day or so. If it is due to abscess, it may persist for a bit longer and in that case we would plan to recheck blood cultures if he spikes a fever again. HISTORY OF PRESENT ILLNESS: This is a 31-year-old man admitted on 11/10/17 with right-sided abdominal pain. CT scan showed appendicitis with perforation. He was taken to the operating room at 3 in the morning by Dr. Fatima. He was initially febrile later in the day on 11/10/17, having otherwise tolerated the surgery quite well. He was started on Zosyn preoperatively and has continued on it since then. After spiking fever on 11/10/17, he had none on , a couple of low-grade fevers on 11/12/17 and 11/13/17 and then did not spike again until 11/14/17 and then did again last night to about 39 degrees with some chills and sweats, no rigors. Today, he feels well. He has had no low-grade fevers today. He is not having sweats or chills. He is having bowel movements since yesterday, which are liquid and 2 to 3 times so far this morning. He does not have any mucus or blood in them. A C. diff test was negative. He had some urgency yesterday, but none today in particular. He has no dysuria. No chest pain or sinus symptoms. He has occasional cough and had required supplemental oxygen, which was resolving. He is using his incentive spirometer. Because of the fever, he had a CT abdomen and pelvis done yesterday with findings of the collection as described above as well as some right lower lobe atelectasis and effusion. Today, he had abdominal x-ray that showed dilated loops of bowel in the left upper quadrant. Urine culture done yesterday has no growth. Urinalysis showed blood, no white cells or leukocyte esterase. He does not have a history of allergic reaction to antibiotics. PAST MEDICAL HISTORY: None. ALLERGIES: No known drug allergies. MEDICATIONS: 1. Tylenol. 2. Benadryl as needed. 3. Percocet as needed. 4. Pantoprazole IV daily. 5. Zosyn 3.375 g IV every 8 hours. SOCIAL HISTORY: He lives in [place] with his family. He has no travel. No injection drugs. FAMILY HISTORY: No recurrent infections. REVIEW OF SYSTEMS: All negative to a 14-point review of systems except as noted above in the history of present illness. PHYSICAL EXAM: Vital Signs: Temperature is 37, heart rate 86, respiratory rate 18, blood pressure 131/55, oxygen saturation 95% on room air. In general, he is awake, not in distress. Neurologic: He is oriented x3. Follows all commands. Moves all his extremities. HEENT: There is no conjunctival hemorrhage. Oropharynx without lesions. Neck is supple without mass. Heart is regular rate and rhythm without murmurs, rubs, or gallops. Lungs have decreased breath sounds at the bases bilaterally without wheeze or rale. Lymph Nodes: There is no cervical, supraclavicular, inguinal, axillary, or epitrochlear lymphadenopathy. Abdomen is soft, mildly distended. Decreased bowel sounds. There is no rebound. He has mild left and right-sided tenderness to deep palpation. There is a right- sided abdominal drain with serosanguineous fluid. Skin: There is no rash or splinter hemorrhage. Musculoskeletal: There is no spine tenderness to palpation. No joint synovitis. LABORATORY DATA: White blood cell count yesterday was 9, hemoglobin 12, platelets 253. Creatinine 1. Please see impressions and recommendations as outlined above. Thanks for asking me to see Mr. Cardoza in consultation. [id number]/[facility] #: [id number] NURIA
[2017-11-16] MEDS: metroNIDAZOLE IV 500 MG/100ML* 500 MG/100 ML BAG IVPB SCH (21:32)
[2017-11-17] MEDS: D5W 1/2 NS KCl 20 Meq 1000 ML* 1,000 ML IV SCH ×2 (06:55→18:28)
--- NOTE | 2017-11-17 08:15 | PN ---
Progress Note - Progress Note Date of Service: 11/17/17 SOAP: Subjective: No fever/chills. Diarrhea without much flatus. No N/V. Objective: Vital Signs Temp 98.5 F 11/17/17 07:17 Pulse 78 11/17/17 07:17 Resp 16 11/17/17 08:00 BP 147/59 11/17/17 07:17 Pulse Ox 97 11/17/17 07:17 Gen: NAD Abd: softly distended; nontender; incisions c/d/i no erythema; SHAUN serous. Scant BS. Intake & Output 11/16/17 11/17/17 11/17/17 18:59 06:59 18:59 Intake Total 1205 2067 Output Total 310 805 200 Balance 895 1262 -200 Intake: IV Fluids 985 2067 ABX - FLAGYL 107 D5W 1/2 NS 20 meq KCL 985 1960 IVPB 220 ABX - LEVOFLOXACIN 110 ABX - ZOSYN 110 Oral 0 0 Output: SHAUN #1 10 5 Urine 300 800 200 Other: Date of Last Bowel 11/17/2017 Movement # Bowel Movements 1 1 Estimated Stool Amount Medium Small Assessment: POD#7 s/p lap appy for perf. Resolving SBO vs ileus. Plan: Clears advance to full liquids as tolerated. D/C SHAUN. Appreciate ID input;cont levaquin/flagyl.
[2017-11-17] MEDS: metroNIDAZOLE IV 500 MG/100ML* 500 MG/100 ML BAG IVPB SCH ×2 (08:46→20:48)
--- NOTE | 2017-11-17 11:04 | PN ---
Progress Note - Progress Note Date of Service: 11/17/17 SOAP: Subjective: CC: fever HPI: 31 yo man with perforated appendicitis and fecal peritonitis s/p laparoscopic appendectomy. No fever overnight, no rash. Loose stools. Tolerating clear liquids. Still feels bloated. Objective: Vital Signs Temp 36.9 C 11/17/17 07:17 Pulse 78 11/17/17 07:17 Resp 20 11/17/17 08:00 BP 147/59 11/17/17 07:17 Pulse Ox 97 11/17/17 07:17 Intake & Output 11/16/17 11/17/17 11/17/17 18:59 06:59 18:59 Intake Total 1205 2067 Output Total 310 805 625 Balance 895 1262 -625 Intake: IV Fluids 985 2067 ABX - FLAGYL 107 D5W 1/2 NS 20 meq KCL 985 1960 IVPB 220 ABX - LEVOFLOXACIN 110 ABX - ZOSYN 110 Oral 0 0 Output: SHAUN #1 10 5 Urine 300 800 625 Other: Date of Last Bowel 11/17/2017 Movement # Bowel Movements 1 1 Estimated Stool Amount Medium Small Gen:awake, no distress HEENT: no thrush Heart:RRR no murmur Lungs:CTA BL Abd:+BS NT mildly distended Skin: no rash Microbiology 11/15/17 00:17 Urine Culture - Final Urine No Growth (<1,000 CFU/mL) Assessment: 1. fever, none in 24 hours; ?due to abd collection, resolving peritonitis, or drug fever 2. resolving SBO 3. Perforated appendicitis w fecal peritonitis s/p laparoscopic appendectomy Plan: 1. continue levaquin 500 mg daily and flagyl 500 mg bid day 03/14, can use PO for discharge Disussed with Dr Fatima
[2017-11-17] MEDS: Pantoprazole IV* 40 MG IV SCH (11:13)
[2017-11-17] MEDS: Levofloxacin 500 MG IVPREMIX(* 500 MG/100 ML BAG IVPB SCH (13:53)
[2017-11-18] MEDS: D5W 1/2 NS KCl 20 Meq 1000 ML* 1,000 ML IV SCH (03:33)
[2017-11-18 06:59] VITALS: BP 144/49
[2017-11-18] MEDS ORDERED: Levofloxacin TAB* 500 MG PO SCH (10:00)
[2017-11-18] MEDS ORDERED: metroNIDAZOLE TAB* 250 MG PO SCH (10:00)
--- NOTE | 2017-11-18 10:09 | PN ---
Progress Note - Progress Note Date of Service: 11/18/17 SOAP: Subjective: CC: fever HPI: 31 yo man with perforated appendicitis and fecal peritonitis s/p laparoscopic appendectomy. No fever or rash. Tolerating liquids. Objective: Vital Signs Temp 37.2 C 11/18/17 03:45 Pulse 76 11/18/17 03:45 Resp 16 11/18/17 03:45 BP 144/49 11/18/17 03:45 Pulse Ox 96 11/18/17 03:45 Intake & Output 11/17/17 11/18/17 11/18/17 18:59 06:59 18:59 Intake Total 1754 0 Output Total 1565 1600 1000 Balance 189 -1600 -1000 Intake: IV Fluids 1194 ABX - FLAGYL 214 D5W 1/2 NS 20 meq KCL 980 Oral 560 0 Output: Urine 1565 1600 1000 Other: Date of Last Bowel 11/18/17 Movement # Bowel Movements 1 1 Estimated Stool Amount Small Medium Gen:awake, no distress HEENT: no thrush Heart:RRR no murmur Lungs:CTA BL Abd:+BS NT mildly distended Skin: no rash Assessment: 1. fever, resolved 2. resolving SBO 3. Perforated appendicitis w fecal peritonitis s/p laparoscopic appendectomy Plan: 1. continue levaquin 500 mg daily and flagyl 500 mg bid to complete 14 days, will arrange fu appt as outpt
--- NOTE | 2017-11-18 10:29 | PN ---
Progress Note - Progress Note Date of Service: 11/18/17 Note: S: POD #8. On Levo/Flagyl. Patient seen with and examined by Dr. Fatima. No pain. Passing loose stool, though no flatus. No vomiting. O: Vital Signs - 8 hr 11/18/17 03:45 Temperature 99.0 F Pulse Rate 76 Respiratory 16 Rate Blood Pressure 144/49 (mmHg) O2 Sat by Pulse 96 Oximetry Intake and Output Last 24 Hours 11/16/17 11/17/17 11/18/17 11/19/17 06:59 06:59 06:59 06:59 Intake Total 220 3272 1754 Output Total 1279 1115 3165 1000 Balance -1059 2157 -1411 -1000 Weight 260 lb Intake: IV Fluids 220 3052 1194 ABX - FLAGYL 107 214 ABX - ZOSYN 220 D5W 1/2 NS 20 meq KCL 2945 980 IVPB 220 ABX - LEVOFLOXACIN 110 ABX - ZOSYN 110 Oral 0 0 560 Output: SHAUN #1 4 15 Urine 1275 1100 3165 1000 Other: Estimated Void Medium Date of Last Bowel 11/16/17 11/17/2017 11/18/17 Movement # Bowel Movements 2 1 1 Estimated Stool Amount Medium Medium Medium # Voids 2 Gen: NAD; appears comfortable Heart: reg Lungs: clear; sl decreased BS at R base Abd: mildly distended and tympanitic; improved. +BS (fairly normal); soft; no sig tenderness; small amt of drainage at drain site; dsg changed. [place] d/c'd. A: s/p lap appy for acute rupt'd appendicitis w/ fecal peritonitis, improving. P: change to po abx (Levafloxacin and Flagyl); home later today if samson; discussed gradual adv of diet; protein supplementation.
--- NOTE | 2017-11-18 14:58 | DS ---
CC: Dr. Jamar Steel * DATE OF ADMISSION: 11/10/2017. DATE OF DISCHARGE: 11/18/2017. ATTENDING SURGEON: Dr. William Fatima * (CECE Lord dictating). HOSPITAL COURSE: Please refer to admission history and physical and operative note for details. Briefly, the patient was taken to the operating room on [address] Fatima who performed a laparoscopic appendectomy. Findings at the time of surgery included free perforation with stool. The patient was treated with IV Zosyn postoperatively with a waxing and waning course of fevers and tachycardia. He was rescanned on 11/15/2017, that showing evidence of possible small bowel obstruction as well as a fluid collection measuring 4.4 x 1.3 x 2.4 cm in the right pericolic gutter that may represent residual abscess. In addition, there was a small right pleural effusion. The patient was seen in consult by Dr. Steel who felt that he may actually have drug-related fever and antibiotics were subsequently changed to Levaquin and Flagyl. Since that time, his temperature has remained down. His white blood cell count has normalized and he has had no vomiting for two- and-a-half days. He is currently tolerating a full liquid diet fairly well and passing loose stool. PHYSICAL EXAMINATION: General: Well-nourished, obese male in no acute distress. He appears comfortable. Skin: Warm and dry. Vital Signs: On exam the morning of discharge, his T-max was 99.3, blood pressure 144/49, pulse 76, respirations 16, room air saturation 96 percent. Heart: Regular rate and rhythm. Lungs: Clear to auscultation. Decreased breath sounds at the right base. Abdomen: Still somewhat distended and tympanitic, though improved from previous days. Bowel sounds are fairly normal in quantity and quality. Laparoscopic incision sites are healing well. [place] were removed. No evidence of wound infection. Small amount of drainage at the SHAUN drain site. Dressing was changed. Abdomen was otherwise soft and nontender. IMPRESSION: Status post laparoscopic appendectomy for acute ruptured appendicitis with fecal peritonitis, improving. PLAN: Likely home today if he tolerates transition to oral antibiotics which he will continue for a total of a 14 day course of Levaquin and Flagyl under the direction of Dr. Steel. He has a follow-up set up in our office on 11/25. A note was written for return to work at a limited capacity beginning on 11/22/2017. CECE LORD [id number]/[facility] #: [id number] NURIA
== END 2017-11-18 15:45 | disposition home or self-care (01) | DRG 339 ==
LOC: ED 20:47 → OR 11-10 01:10 → SSU 11-10 04:15
PROVIDERS: ADMIT Surgery; ATTEND Surgery
PROC: 0DTJ4ZZ Resection of Appendix, Percutaneous Endoscopic Approach (ICD-10-PCS; principal; 2017-11-10 01:35)
DX: K35.3 Acute appendicitis with localized peritonitis (principal); J90 Pleural effusion, not elsewhere classified; K63.0 Abscess of intestine; K56.7 Ileus, unspecified; E66.9 Obesity, unspecified; K21.9 Gastro-esophageal reflux disease without esophagitis; Z82.49 Family history of ischemic heart disease and other diseases of the circulatory system; Z72.89 Other problems related to lifestyle; Z68.36 Body mass index [BMI] 36.0-36.9, adult; R19.7 Diarrhea, unspecified; R50.2 Drug induced fever
CPT/HCPCS: 36415; 74019; 74177; 80048; 80053; 81003; 81015; 83605; 83690; 85025; 86140; 87086; 87493; 88304; 99284; A9270-GY; C1776; J0330; J1100; J1885; J1956; J2250; J2270; J2405; J2543; J2704; J2710; J2765; J3010; J3490; Q9967